=== PATIENT | female | born 1990 | race Caucasian/White ===

== ENCOUNTER → 2016-10-07 | Outpatient (CLI) | payer OTHER ==
[2016-10-07 13:26] LABS: CH 31.4; CHCM 34.1; HCT 32.9 % (34.0-46.0); HDW 2.42; MCH 30.8 pg (25.0-35.0); MCHC 33.3 g/dL (31.0-37.0); MCV 92.6 fL (80.0-100.0); Mean Platelet Volume 6.3; RBC 3.56 m/uL (3.80-5.40); RDW 13.8 % (11.5-15.5); WBC 15.6 k/uL (3.8-10.6)
== END | disposition home or self-care (01) ==
LOC: LABWHC1 12:04
PROVIDERS: ATTEND Obstetrics & Gynecology
DX: Z34.82 Encounter for supervision of other normal pregnancy, second trimester (principal); Z3A.00 Weeks of gestation of pregnancy not specified
CPT/HCPCS: 36415; 82950; 85027

== ENCOUNTER → 2016-12-18 | Outpatient (CLI) | payer OTHER ==
[2016-12-18 17:21] LABS: Uric Acid 5.4 mg/dL (3.7-7.4)
--- NOTE | 2016-12-18 21:33 | US ---
EXAMINATION TYPE: US OB anatomy transabd DATE OF EXAM: 12/18/2016 4:43 PM COMPARISON: 06/2016 HISTORY: Large for Dates O36.63X0 TECHNIQUE: Transabdominal (TA) EXAM MEASUREMENTS: GESTATIONAL AGE / DATING Physician Established: not established Dates by LMP: unknown Dates by First Scan: (35 weeks/ days) EDC: 01/20/2017 Dates by Current Scan for: (35 weeks/1 days) EDC: 01/21/2017 SURVEY IUP: Single PLACENTA: Posterior PREVIA: No previa JOSEFA: 16.9 cm Normal CERVICAL LENGTH (transabdominal: norm > 3.0cm): 4.1 cm BIOMETRY PRESENTATION: Vertex LIE: BPD: 8.9 cm 36 weeks / 1 days HC: 31.6 cm 35 weeks / 4 days AC: 29.4 cm 33 weeks / 3 days FL: 6.9 cm 35 weeks / 3 days ESTIMATED WEIGHT IN GRAMS: 2430 grams ESTIMATED WEIGHT IN LBS/OZS: 5 lbs. 6 oz. WEIGHT PERCENTAGE BASED ON ESTABLISHED DATE: 25 % HC/AC: 1.07 FL/AC: 23 HEART RATE: 142 bpm RHYTHM: Normal ANATOMY SEEN (within normal limits): * Lateral Vent (< 1 cm) 0.9 cm * Cisterna Magna (< 1.1 cm) 0.6 cm * Nuchal Fold (< 0.6 cm) 0.4 cm * Cerebellum (varies with age) 3.5 cm Choroid Plexus (bilateral) Midline Falx Cavus Septi Pellucidi Four Chamber Heart Outflow tracts: LVOT/RVOT Stomach Situs Nose / Lips Diaphragm Kidneys (bilateral) Bladder Cord Insert Three Vessel Cord Longitudinal Spine Transverse Spine Arms (bilateral) Legs (bilateral) IMPRESSION: 1. Viable intrauterine of 35 weeks 3 days and heart rate of 142 bpm. 2. Limited internal anatomy assessment due to advanced gestational age.
== END ==
LOC: RADUSWWP 16:13
PROVIDERS: ATTEND Obstetrics & Gynecology
DX: O36.63X0 Maternal care for excessive fetal growth, third trimester, not applicable or unspecified (principal); O26.619 Liver and biliary tract disorders in pregnancy, unspecified trimester; Z3A.35 35 weeks gestation of pregnancy
CPT/HCPCS: 76811; 82239; 84450; 84460; 84550

== ENCOUNTER 2017-01-08 09:35 | Inpatient (IN) | payer OTHER ==
[2017-01-08 10:31] LABS: Appearance,Urine Cloudy (Clear); Bacteria,Urine Many /hpf; Bilirubin,Urine Negative (Negative); Glucose,Urine (UA) Negative (Negative); Ketones,Urine Negative (Negative); Leukocyte Esterase,Urine Large (Negative); Mucus,Urine Rare /hpf; Nitrite,Urine Negative (Negative); Particle Count 18550; Protein,Urine Negative (Negative); Specific Gravity,Urine 1.004 (1.001-1.035); Squamous Epithelial Cell,Urine 7 /hpf (0-4); UA Billing (MACRO vs. MICRO) MICRO; Urobilinogen,Urine <2.0 mg/dL (<2.0); WBC,Urine 40 /hpf (0-5)
[2017-01-08 10:57] LABS: Basophils % (A) 0 %; CH 32.4; CHCM 34.8; Eosinophils # (A) 0.1 k/uL (0-0.7); Eosinophils % (A) 1 %; HCT 31.7 % (34.0-46.0); HDW 3.03; HGB 10.8 gm/dL (11.4-16.0); Luc # (Auto) 0.26; Luc % (Auto) 2; Lymphocytes % (A) 15 %; MCH 31.7 pg (25.0-35.0); MCHC 33.9 g/dL (31.0-37.0); MCV 93.5 fL (80.0-100.0); Mean Platelet Volume 6.8; Monocytes # (A) 0.6 k/uL (0-1.0); Monocytes % (A) 4 %; Neutrophils # (A) 10.5 k/uL (1.3-7.7); Neutrophils % (A) 78 %; RBC 3.39 m/uL (3.80-5.40); RDW 13.7 % (11.5-15.5); WBC 13.6 k/uL (3.8-10.6); WBC (Perox) 14.09
[2017-01-08 11:04] LABS: ALT 23 U/L (9-52); AST 23 U/L (14-36); Blood Urea Nitrogen 9 mg/dL (7-17); LDH 408 U/L (313-618); Non-African American GFR(MDRD) 59 (>60 ml/min/1.73 sqM); Uric Acid 5.3 mg/dL (3.7-7.4)
[2017-01-08] MEDS ORDERED: ACETAMINOPHEN TAB 325 MG TAB PO PRN (12:43)
[2017-01-08] MEDS ORDERED: ZOLPIDEM 5 MG TAB PO PRN (12:43)
[2017-01-08] MEDS ORDERED: MAG HYDROX/AL HYDROX/SIMETH 30 ML CUP PO PRN (12:43)
--- NOTE | 2017-01-08 13:01 | P.HPOB ---
History of Present Illness H&P Date: 01/08/17 Chief Complaint: Gestational hypertension This is a 26-year-old female 2 para 1 with an estimated date of confinement of 01/26/2017, estimated gestational age of 37-3/7 weeks, who presented to the office today for her routine visit. At that time her blood pressure was initially elevated to 158/90 and repeat blood pressure was 130/90. She denies any blurry vision or headaches. She has been having swelling in her hands and feet that has been going on for several weeks now. She was sent to triage for blood pressure monitoring and labs. Her blood pressures in triage were all significantly elevated over 140 to 150s over 90s to 100s. Her labs were all essentially normal other than her creatinine was at 1.1 which is elevated over her previous. Her protein was negative. In light of the fact that she does have gestational hypertension and is over 37 weeks the decision is made to admit and deliver. She was advised since her cervix is unfavorable and she had a previous section, that we should proceed to delivery. I did recommend that we proceed with that today however the patient is very concerned about having her baby on 01/08/2017 because it is "Stoner day". She is willing to be admitted for observation and have the section tomorrow. Due to scheduling issues we were able to schedule this at noontime tomorrow and she will be admitted with close observation tonight. She is aware if blood pressures worsen or other symptoms arise, she may need a section earlier. She has signed consent forms in the office for repeat section with bilateral tubal ligation. labs: GC/chlamydia-negative Toxoplasma-negative Syphilis antibody-nonreactive HIV-nonreactive Random glucose-84 Hepatitis B surface antigen-negative Hemoglobin-12.5 Rubella-immune Blood type-O+ Antibody screen-negative One hour Glucola-109 Group B streptococcus-negative Obstetrical history: . History of 1 delivery at 40-4/7 weeks due to failed induction of labor and distress. She did have gestational hypertension during the last part of that regnancy also. Gynecologic history: No history of sexual transmitted diseases. Social history: She is engaged. 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 History of Any Multi-Drug Resistant Organisms: None Reported Past Surgical History: Appendectomy, Section Additional Past Surgical History / Comment(s): Right nephrectomy; wrist surgery Past Psychological History: No Psychological Hx Reported Smoking Status: Former smoker Past Alcohol Use History: None Reported Past Drug Use History: None Reported - Past Family History Mother Family Medical History: Cancer (Ovarian), Hypertension Medications and Allergies Home Medications Medication Instructions Recorded Confirmed Type Pnv with Ca,No.72/Iron/FA 1 tab PO DAILY 01/08/17 01/08/17 History [ Plus Tablet] Allergies Allergy/AdvReac Type Severity Reaction Status Date / Time Penicillins AdvReac Nausea & Verified 01/08/17 09:48 Vomiting Exam Osteopathic Statement: *. No significant issues noted on an osteopathic structural exam other than those noted in the History and Physical/Consult. - Vital Signs Vital signs: Intake and Output 01/07/17 01/08/17 01/08/17 22:59 06:59 14:59 Other: Weight 103.169 kg Patient Weight 01/09/17 06:59 Weight 103.169 kg HEENT: Within normal limits Heart: Regular rate and rhythm Lungs: Clear to auscultation bilaterally Abdomen: Cervix: Closed/60%/floating heart tones: Reactive Contractions: Irregular Extremities: 1+ pitting edema in her lower extremities and puffiness in her hands bilaterally Results Result Diagrams: 01/08/17 10:44 01/08/17 10:44 Abnormal Lab Results - Last 24 Hours (Table) 01/08/17 01/08/17 01/08/17 Range/Units 10:02 10:44 10:44 WBC 13.6 H (3.8-10.6) k/uL RBC 3.39 L (3.80-5.40) m/uL Hgb 10.8 L (11.4-16.0) gm/dL Hct 31.7 L (34.0-46.0) % Neutrophils # 10.5 H (1.3-7.7) k/uL Creatinine 1.10 H (0.52-1.04) mg/dL Urine Appearance Cloudy H (Clear) Ur Leukocyte Esterase Large H (Negative) Urine WBC 40 H (0-5) /hpf Ur Squamous Epith Cells 7 H (0-4) /hpf Urine Bacteria Many H (None) /hpf Urine Mucus Rare H (None) /hpf Assessment and Plan (1) Gestational hypertension affecting second Status: Acute (2) 37 weeks gestation of Status: Acute (3) Previous delivery affecting Status: Acute Plan: Plan is to admit for gestational hypertension and observe blood pressures. If her blood pressures are significantly elevated, will initiate antihypertensive' s. Will schedule section with bilateral partial salpingectomy for noon time tomorrow.
[2017-01-08 14:52] VITALS: BMI 38.9
[2017-01-09] MEDS ORDERED: LACTATED RINGERS 1,000 ML IV SCH (09:12)
[2017-01-09] MEDS ORDERED: LACTATED RINGERS 1,000 ML IV ONE (09:12)
[2017-01-09] MEDS ORDERED: CITRIC ACID-SODIUM CITRATE 15 ML CUP PO ONE (09:12)
[2017-01-09] MEDS ORDERED: CLINDAMYCIN 900 MG in DEXTROSE 5% IN WATER 50 ML IVPB STA ×2 (09:15)
[2017-01-09 10:23] LABS: Prothrombin Time 10.4 sec (9.0-12.0)
[2017-01-09] MEDS ORDERED: MORPHINE SULFATE (PF) 0.3 MG/0.3 ML SYR ONE (12:09)
[2017-01-09] MEDS ORDERED: NALBUPHINE 10 MG/ML AMPUL ONE (12:09)
[2017-01-09] MEDS ORDERED: LACTATED RINGERS 1,000 ML BAG IV ONE (12:09)
[2017-01-09] MEDS ORDERED: OXYTOCIN 10 UNIT/ML 1 ML VIAL IM ONE (12:09)
--- NOTE | 2017-01-09 12:55 | P.OP ---
Date of Procedure: 01/09/17 Preoperative Diagnosis: 1. Intrauterine at 37-4/7 weeks. 2. Gestational hypertension. 3. History of previous section. 4. Family planning. Postoperative Diagnosis: Same Procedure(s) Performed: Repeat low transverse section with bilateral partial salpingectomy Anesthesia: spinal (Duramorph) Surgeon: Vania Salomon Estimated Blood Loss (ml): 600 Pathology: other (Placenta, portions of right and left fallopian tubes) Condition: stable Disposition: floor Indications for Procedure: This is a 26-year-old female 2 para 1 at 37-4/7 weeks who was admitted for gestational hypertension. Her cervix was found to be unfavorable and she does have a history of a previous section. The decision was made to proceed with delivery due to her gestational hypertension which was noted to be labile. She did not have proteinuria and did not meet criteria for preeclampsia. She was admitted and watched overnight and now is presenting for section. Operative Findings: A viable female infant is noted in the vertex presentation with scores of 9 at 1 minute and 9 at 5 minutes and weight of 7 lbs. 10 oz. Nuchal cord times one was noted. Normal uterus tubes and ovaries are noted. Description of Procedure: The patient is taken to the operating room where she is placed in the dorsal supine position with leftward tilt after spinal Duramorph anesthesia is given. She is prepped and draped in the normal sterile fashion. Skin was tested and found to be adequately anesthetized. A Pfannenstiel skin incision was made through the previous laparotomy scar with a scalpel. A second knife was used to carry the incision down to the underlying layer of fascia. The fascia was nicked in the midline with a scalpel and then extended laterally bilaterally with Izaguirre scissors. The anterior lip of the fascia was grasped with 2 Jose clamps and then dissected off the underlying rectus muscle in the midline with Izaguirre scissors. The inferior aspect of the fascial incision was grasped with 2 Jose clamps and dissected off the underlying rectus muscle and the midline with Izaguirre scissors. Next the peritoneum layer was tented up with 2 hemostats and then entered sharply with the scalpel. The incision is extended superiorly and inferiorly with Metzenbaum scissors. Next a DeLee retractor is placed. The vesicouterine peritoneum is entered sharply with Metzenbaum scissors and extended laterally bilaterally with Metzenbaum scissors and then the bladder flap is pushed inferiorly. The lower uterine segment is incised in transverse fashion with the scalpel and then bluntly entered with a hemostat. Clear fluid is noted. The incision was then extended laterally bilaterally with 2 fingers. Next the 's head is delivered through the incision. Nose and mouth are bulb suctioned. The remainder of the is easily delivered and placed on mother's abdomen. After waiting approximately 1-1/2 minutes, the cord is clamped and cut per mom's request for delayed cord clamping. Infant is taken to warmer by nursing staff. Uterine fundus is gently massaged and placenta is delivered manually. Uterus is exteriorized and cleared of all clots and debris. Uterine incision is closed with 0 Vicryl suture in a running locked fashion. A second layer of 0 Vicryl suture is used in a running fashion for hemostasis. Once adequate hemostasis as assured, the vesicouterine peritoneum is reapproximated with 2-0 Vicryl suture in a running fashion. Attention is then turned to the tubes. The right fallopian tube is grasped in the midportion with a hemostat and the mesosalpinx is entered with Bovie cautery. 0 Vicryl suture is tied 2 times around both the proximal and distal portions of the tube. At some ounces her used to remove the knuckle of tube. Bovie cautery was used to cauterize the ends of the tube. Excellent hemostasis is noted. The same procedure is very out on the left fallopian tube. Posterior cul-de-sac is suctioned of all clots and debris. Uterus is returned to the abdomen. Incision is noted to be hemostatic. Both tubal sites are visualized and appear to be hemostatic. Peritoneal layer is closed with 0 Vicryl suture in a running fashion. Muscle layer is reapproximated with 0 Vicryl suture in interrupted fashion. Fascia layer is then closed with 0 PDS suture with 2 sutures meeting in the midline and the knots buried in either side and in the midline. The subcutaneous tissue was then closed with 2-0 Vicryl suture. Skin layer was then closed with jolie. All sponge and needle counts are correct. The patient is taken to recovery room in stable condition.
[2017-01-09] MEDS ORDERED: LANOLIN CREAM 5 GM TUBE TOPICAL PRN (13:02)
[2017-01-09] MEDS ORDERED: NALOXONE 0.4 MG/ML 1 ML VIAL IV PRN (13:02)
[2017-01-09] MEDS ORDERED: diphenhydrAMINE 50 MG CAP PO PRN (13:02)
[2017-01-09] MEDS ORDERED: ONDANSETRON 4 MG/2 ML VIAL IVP PRN (13:02)
[2017-01-09] MEDS ORDERED: diphenhydrAMINE 50 MG/ML 1 ML VIAL IVP PRN ×2 (13:02)
[2017-01-09] MEDS ORDERED: SIMETHICONE 80 MG CHEWABLE PO PRN (13:02)
[2017-01-09] MEDS ORDERED: ACETAMINOPHEN TAB 325 MG TAB PO PRN (13:02)
[2017-01-09] MEDS ORDERED: ZOLPIDEM 5 MG TAB PO PRN (13:02)
[2017-01-09] MEDS ORDERED: diphenhydrAMINE 25 MG CAP PO PRN (13:02)
[2017-01-09] MEDS ORDERED: Acetaminophen-Codeine 300-30mg TAB PO PRN ×2 (13:02)
[2017-01-09] MEDS ORDERED: KETOROLAC 30 MG/ML 1 ML VIAL IVP PRN (13:02)
[2017-01-09] MEDS ORDERED: METOCLOPRAMIDE 5 MG/ML 2 ML VIAL IVP PRN (13:02)
[2017-01-09] MEDS ORDERED: OXYTOCIN 30 UNITS/500 ML NS 30 UNIT in SALINE 1 500ML.BAG IV SCH (13:02)
[2017-01-09] MEDS: LACTATED RINGERS 1,000 ML IV SCH ×2 (16:25→21:46)
[2017-01-09] MEDS: SENNOSIDES-DOCUSATE SODIUM 1 EACH TAB PO SCH (21:46)
[2017-01-10 05:54] LABS: Basophils # (A) 0.1 k/uL (0-0.2); Basophils % (A) 0 %; CHCM 34.8; Eosinophils # (A) 0.1 k/uL (0-0.7); Eosinophils % (A) 1 %; HCT 27.9 % (34.0-46.0); HGB 9.7 gm/dL (11.4-16.0); Luc # (Auto) 0.32; Luc % (Auto) 2; Lymphocytes # (A) 2.3 k/uL (1.0-4.8); Lymphocytes % (A) 15 %; MCHC 34.6 g/dL (31.0-37.0); MCV 92.4 fL (80.0-100.0); Mean Platelet Volume 6.8; Monocytes # (A) 0.9 k/uL (0-1.0); Monocytes % (A) 6 %; Neutrophils # (A) 11.9 k/uL (1.3-7.7); Neutrophils % (A) 77 %; RBC 3.02 m/uL (3.80-5.40); RDW 13.4 % (11.5-15.5); WBC 15.5 k/uL (3.8-10.6); WBC (Perox) 16.52
[2017-01-10] MEDS: LACTATED RINGERS 1,000 ML IV SCH ×2 (06:09→19:50)
--- NOTE | 2017-01-10 06:48 | P.PNOBGPC ---
Subjective - Subjective Patient reports: Reports appetite normal, Reports voiding normally, Reports pain well controlled, Reports ambulating normally : doing well Objective - Vital Signs Latest vital signs: Vital Signs Temp Pulse Resp BP BP Pulse Ox 01/10/17 06:00 18 01/10/17 04:00 98.7 F 75 16 137/82 99 01/10/17 02:00 19 01/10/17 00:00 98.7 F 77 18 148/80 99 01/09/17 22:00 17 01/09/17 20:00 98.5 F 85 16 136/83 97 01/09/17 16:00 98.1 F 88 16 140/84 97 01/09/17 14:55 98.3 F 92 18 143/85 100 01/09/17 14:25 97.2 F L 82 18 139/84 100 01/09/17 13:55 77 18 147/87 100 01/09/17 13:40 84 18 155/89 97 01/09/17 13:25 88 18 146/86 98 01/09/17 13:10 87 17 142/80 95 01/09/17 12:55 97.2 F L 91 18 118/62 98 Intake and Output 01/09/17 01/09/17 01/10/17 14:59 22:59 06:59 Intake Total 1900 Output Total 400 1200 600 Balance -400 700 -600 Intake: IV 1900 Invasive Line 1 950 Lactated Ringers 1,000 ml 950 @ 125 mls/hr IV .Q8H ALEX Rx#:[id number] Output: Urine 400 1200 600 Uretheral (Walker) 600 Other: Voiding Method Indwelling Catheter Toilet # Voids 1 - Exam Lungs: bilateral: normal Chest: Normal S1, Normal S2 Extremities: Present: normal Abdomen: Present: normal appearance, soft. Absent: distention, tenderness Incision: Present: normal, dry, intact Uterus: Present: normal, firm - Labs Labs: Abnormal Lab Results - Last 24 Hours (Table) 01/10/17 Range/Units 05:31 WBC 15.5 H (3.8-10.6) k/uL RBC 3.02 L (3.80-5.40) m/uL Hgb 9.7 L (11.4-16.0) gm/dL Hct 27.9 L (34.0-46.0) % Neutrophils # 11.9 H (1.3-7.7) k/uL Assessment and Plan (1) delivery delivered Narrative/Plan: This is postoperative day #1. Patient is resting without new complaints. Blood pressures are 130 to 140 over 80s. Patient is afebrile. Uterus is firm nontender and her incision is intact and dry. CBC shows a hemoglobin of 9.7 which appears appropriate from her preoperative hemoglobin. My impression is this is a normal postoperative course. Plan is to continue routine post operative care, advanced to a regular diet, encourage the patient to ambulate, and allow her to shower. Patient will go home either tomorrow or Thursday. Current Visit: Yes Status: Acute Code(s): O82 - ENCOUNTER FOR DELIVERY WITHOUT INDICATION SNOMED Code(s): 478266575 (2) Gestational hypertension Current Visit: Yes Status: Acute Code(s): O13.9 - GESTATIONAL HTN W/O SIGNIFICANT PROTEINURIA, UNSP TRIMESTER SNOMED Code(s): 55181383
[2017-01-10] MEDS: SENNOSIDES-DOCUSATE SODIUM 1 EACH TAB PO SCH ×2 (07:55→19:56)
--- NOTE | 2017-01-10 08:32 | P.PN ---
Progress Note - Text Date: 01/10/2017 Time: 720 The patient is status post section Vital signs stable VAS: 0-10 Patient has no complaints of pain. The patient incurred some minimal itching yesterday, this itching is now subsiding. Pain meds to be managed by service.
[2017-01-10] MEDS: IBUPROFEN 600 MG TAB PO PRN ×2 (11:55→18:53)
[2017-01-11] MEDS: IBUPROFEN 600 MG TAB PO PRN ×2 (03:28→09:47)
[2017-01-11 04:02] VITALS: PULSE 75
--- NOTE | 2017-01-11 07:09 | P.PNOBGPC ---
Subjective - Subjective Patient reports: Reports appetite normal, Reports voiding normally, Reports pain well controlled, Reports ambulating normally : doing well Objective - Vital Signs Latest vital signs: Vital Signs Temp Pulse Resp BP Pulse Ox 01/11/17 04:00 97.9 F 75 16 146/88 100 01/10/17 20:00 98.4 F 94 16 138/79 97 01/10/17 16:00 98.2 F 68 16 141/89 01/10/17 12:00 98.4 F 81 16 136/89 01/10/17 07:57 98.7 F 80 16 141/73 97 Intake and Output 01/10/17 01/11/17 01/11/17 22:59 06:59 14:59 Intake Total 500 Balance 500 Intake: Oral 500 Other: # Voids 2 - Exam Lungs: bilateral: normal Chest: Normal S1, Normal S2 Extremities: Present: normal Abdomen: Present: normal appearance, soft. Absent: distention, tenderness Incision: Present: normal, dry, intact Uterus: Present: normal, firm Assessment and Plan (1) delivery delivered Narrative/Plan: Post day #2. Postoperative day #2. Patient is resting without new complaints and wishes to go home. Blood pressures are stable and did not require any treatment at this time. Patient is tolerating regular diet, ambulating, urinating without difficulty. Incision is intact and dry. My impression is that this is a normal postoperative course with stable blood pressures. Patient wishes to go home as felt to be stable for discharge home to follow up with Dr. Salomon sometime this week to recheck her incision and blood pressure. Plan is to continue routine postoperative care discharge home later today. Current Visit: Yes Status: Acute Code(s): O82 - ENCOUNTER FOR DELIVERY WITHOUT INDICATION SNOMED Code(s): 520021164 (2) Gestational hypertension Current Visit: Yes Status: Acute Code(s): O13.9 - GESTATIONAL HTN W/O SIGNIFICANT PROTEINURIA, UNSP TRIMESTER SNOMED Code(s): 76505288
--- NOTE | 2017-01-11 07:14 | P.DS ---
Providers Date of admission: 01/08/17 11:08 Expected date of discharge: 01/11/17 Attending physician: Vania Salomon Primary care physician: Stated None - Discharge Diagnosis(es) (1) delivery delivered Current Visit: Yes Status: Acute (2) Gestational hypertension Current Visit: Yes Status: Acute Hospital Course: Please see dictated H&P per Dr. Salomon on this patient's admission. Brief summary this is a 26-year-old female admitted at 37 weeks with gestational hypertension in previous section. Patient underwent a repeat low transverse section and tubal ligation for viable female infant. Postoperative patient's blood pressures were good. By post operative day #2 patient was felt to be stable for discharge home follow up in 1 week for an incision check and blood pressure check. Procedures: Repeat low transverse section and bilateral partial salpingectomy. Patient Condition at Discharge: Good Plan - Discharge Summary New Discharge Prescriptions: Acetaminophen-Codeine 300-30mg [Tylenol w/codeine #3] 1 - 2 each PO Q4HR PRN #1 tab PRN Reason: Mild Pain Ibuprofen [Motrin] 600 mg PO Q6HR PRN #40 tab PRN Reason: Mild Pain Or Fever >= 100.5 Discharge Medication List Pnv with Ca,No.72/Iron/FA [ Plus Tablet] 1 tab PO DAILY 01/08/17 [ History] Acetaminophen-Codeine 300-30mg [Tylenol w/codeine #3] 1 - 2 each PO Q4HR PRN #1 tab 01/11/17 [Rx] Ibuprofen [Motrin] 600 mg PO Q6HR PRN #40 tab 01/11/17 [Rx] Follow up Appointment(s)/Referral(s): Vania Salomon DO [Doctor of Osteopathic Medicine] - 01/16/17 9:00 am Patient Instructions/Handouts: (DC) Activity/Diet/Wound Care/Special Instructions: No heavy lifting or strenuous activity for 6 weeks. No intercourse or anything per vagina for 6 weeks. Please call if any fever, chills, excessive vaginal bleeding, and/or abdominal pain. Discharge Disposition: HOME SELF-CARE
[2017-01-11 08:37] VITALS: RESP 20
[2017-01-11 08:38] VITALS: BP 141/86; TEMP 98.2
[2017-01-11] MEDS: SENNOSIDES-DOCUSATE SODIUM 1 EACH TAB PO SCH (09:47)
== END 2017-01-11 13:15 | disposition home or self-care (01) | DRG 766 ==
LOC: FBPOP 09:35 → 4FBP 11:08
PROVIDERS: ADMIT Obstetrics & Gynecology; ATTEND Obstetrics & Gynecology
PROC: 0UB70ZZ Excision of Bilateral Fallopian Tubes, Open Approach (ICD-10-PCS; principal; 2017-01-09)
PROC: 10D00Z1 Extraction of Products of Conception, Low, Open Approach (ICD-10-PCS; principal; 2017-01-09)
DX: O13.4 Gestational [pregnancy-induced] hypertension without significant proteinuria, complicating childbirth (principal); O69.81X0 Labor and delivery complicated by cord around neck, without compression, not applicable or unspecified; Z37.0 Single live birth; O34.211 Maternal care for low transverse scar from previous cesarean delivery; Z3A.37 37 weeks gestation of pregnancy; Z87.891 Personal history of nicotine dependence; Z88.0 Allergy status to penicillin; Z30.2 Encounter for sterilization
CPT/HCPCS: 59025; 81001; 82565; 83615; 84450; 84460; 84520; 84550; 85025; 85610; 86850; 86900; 86901; 88302; 88307; 99215